=== PATIENT | female | born 1975 | race Caucasian/White ===

== ENCOUNTER → 2017-11-13 | Outpatient (REF) | payer OTHER ==
[2017-11-13 17:44] LABS: BASO # 0.1 10^3/uL (0.0-0.2); BASO % 0.5 % (0.0-1.0); EOS # 0.2 10^3/uL (0.0-0.50); EOS % 2.3 % (0.0-3.0); HEMATOCRIT 44.5 % (36.0-47.0); HEMOGLOBIN 14.9 g/dl (12.0-15.5); IMMATURE GRANULOCYTE % 0.3 % (0-3.0); LYMPH # 3.2 10^3/uL (1.5-4.5); LYMPH % 33.7 % (24.0-44.0); MEAN CORPUSCULAR HGB CONC 33.5 g/dl (32.0-36.5); MEAN CORPUSCULAR VOLUME 89.5 fl (80.0-96.0); MONO # 0.4 10^3/uL (0.0-0.8); MONO % 4.5 % (0.0-5.0); NEUTROPHILS # 5.5 10^3/uL (1.8-7.7); NEUTROPHILS % 58.7 % (36.0-66.0); PLATELET COUNT, AUTOMATED 294 10^3/uL (150-450); RED BLOOD COUNT 4.97 10^6/uL (4.00-5.40); RED CELL DISTRIBUTION WIDTH 14.2 % (11.5-14.5); WHITE BLOOD COUNT 9.4 10^3/uL (4.0-10.0)
[2017-11-13 18:09] LABS: TOTAL 25(OH) VITAMIN D 15.6 NG/ML (30.0-100.0)
[2017-11-13 18:20] LABS: ALBUMIN 3.4 GM/DL (3.2-5.2); ALKALINE PHOSPHATASE 87 U/L (45-117); ALT/SGPT 15 U/L (12-78); ANION GAP 8 MEQ/L (8-16); AST/SGOT 10 U/L (7-37); BILIRUBIN,TOTAL 0.4 MG/DL (0.2-1.0); BLOOD UREA NITROGEN 6 MG/DL (7-18); CALCIUM LEVEL 8.3 MG/DL (8.5-10.1); CARBON DIOXIDE LEVEL 23 MEQ/L (21-32); CHLORIDE LEVEL 110 MEQ/L (98-107); CHOLESTEROL LEVEL 175 MG/DL (<200); CHOLESTEROL RISK RATIO 4.268 (<5); CREATININE FOR GFR 0.73 MG/DL (0.55-1.30); FREE T4 1.11 NG/DL (0.76-1.46); GLOMERULAR FILTRATION RATE > 60.0 (>58); GLUCOSE, FASTING 78 MG/DL (70-100); HDL CHOLESTEROL 41 MG/DL (>40); LDL CHOLESTEROL 110.8 MG/DL (<100); NON-HDL-C 134 MG/DL; POTASSIUM SERUM 4.3 MEQ/L (3.5-5.1); SODIUM LEVEL 141 MEQ/L (136-145); TOTAL PROTEIN 6.8 GM/DL (6.4-8.2); TRIGLYCERIDES LEVEL 116 MG/DL (<150)
== END ==
LOC: M SFHCCAPE 07:03
DX: E66.9 Obesity, unspecified (principal)
CPT/HCPCS: 84443

== ENCOUNTER → 2018-01-09 | Outpatient (REF) | payer OTHER ==
[2018-01-09 16:59] LABS: ALBUMIN 3.1 GM/DL (3.2-5.2); ALBUMIN/GLOBULIN RATIO 0.94 (1.00-1.93); ALKALINE PHOSPHATASE 88 U/L (45-117); ALT/SGPT 16 U/L (12-78); ANION GAP 8 MEQ/L (8-16); AST/SGOT 12 U/L (7-37); BILIRUBIN,TOTAL 0.3 MG/DL (0.2-1.0); BLOOD UREA NITROGEN 9 MG/DL (7-18); CARBON DIOXIDE LEVEL 25 MEQ/L (21-32); CHLORIDE LEVEL 108 MEQ/L (98-107); CREATININE FOR GFR 0.78 MG/DL (0.55-1.30); FREE T4 1.07 NG/DL (0.76-1.46); GLOMERULAR FILTRATION RATE > 60.0 (>58); GLUCOSE, FASTING 80 MG/DL (70-100); POTASSIUM SERUM 4.1 MEQ/L (3.5-5.1); SODIUM LEVEL 141 MEQ/L (136-145); TOTAL 25(OH) VITAMIN D 47.8 NG/ML (30.0-100.0); TOTAL PROTEIN 6.4 GM/DL (6.4-8.2)
== END ==
LOC: M SFHCCAPE 06:59
DX: E55.9 Vitamin D deficiency, unspecified (principal); R79.89 Other specified abnormal findings of blood chemistry
CPT/HCPCS: 84443

== ENCOUNTER → 2018-01-15 | Outpatient (REF) | payer OTHER ==
[2018-01-15 19:12] LABS: CHLAMYDIA DNA AMPLIFICATION NEGATIVE (NEGATIVE); GC DNA AMPLIFICATION NEGATIVE (NEGATIVE)
[2018-01-17 15:46] LABS: HPV HYBRID CAPTURE II Negative (Negative)
== END ==
LOC: M SFHCCAPE 10:04
DX: Z01.419 Encounter for gynecological examination (general) (routine) without abnormal findings (principal); Z11.51 Encounter for screening for human papillomavirus (HPV)
CPT/HCPCS: 87591

== ENCOUNTER → 2018-05-21 | Outpatient (REF) | payer MEDICARE ==
[2018-05-21 19:12] LABS: IONIZED CALCIUM 4.5 MG/DL (4.5-5.3)
[2018-05-21 19:37] LABS: HCG, SERUM QUALITATIVE NEGATIVE (NEGATIVE)
[2018-05-21 19:57] LABS: ALBUMIN 3.5 GM/DL (3.2-5.2); ALT/SGPT 19 U/L (12-78); BILIRUBIN,TOTAL 0.3 MG/DL (0.2-1.0); BLOOD UREA NITROGEN 9 MG/DL (7-18); CALCIUM LEVEL 8.5 MG/DL (8.5-10.1); CARBON DIOXIDE LEVEL 25 MEQ/L (21-32); CHLORIDE LEVEL 108 MEQ/L (98-107); CHOLESTEROL LEVEL 201 MG/DL (<200); CHOLESTEROL RISK RATIO 4.466 (<5); CREATININE FOR GFR 0.74 MG/DL (0.55-1.30); ESTRADIOL 31.9 PG/ML; FOLLICLE STIMULATING HORMONE 66.6 mIU/mL; FREE T4 1.03 NG/DL (0.76-1.46); GLOMERULAR FILTRATION RATE > 60.0 (>58); GLUCOSE, FASTING 78 MG/DL (70-100); HDL CHOLESTEROL 45 MG/DL (>40); LDL CHOLESTEROL 135 MG/DL (<100); LUTEINIZING HORMONE 44.6 mIU/mL; MAGNESIUM LEVEL 2.2 MG/DL (1.8-2.4); NON-HDL-C 156 MG/DL; POTASSIUM SERUM 4.5 MEQ/L (3.5-5.1); PROLACTIN 8.6 NG/ML; SODIUM LEVEL 139 MEQ/L (136-145); TESTOSTERONE 37 NG/DL (14-76); TOTAL PROTEIN 6.8 GM/DL (6.4-8.2); TRIGLYCERIDES LEVEL 106 MG/DL (<150)
== END ==
LOC: M SFHCCAPE 10:19
PROVIDERS: ATTEND Physician Assistant
DX: E83.51 Hypocalcemia (principal); E03.9 Hypothyroidism, unspecified; N91.2 Amenorrhea, unspecified
CPT/HCPCS: 36415; 80053; 80061; 82330; 82670; 83001; 83002; 83735; 83970; 84100; 84146; 84403; 84439; 84443; 84703; G0463

== ENCOUNTER → 2020-06-15 | Outpatient (CLI) | payer MEDICARE ==
--- NOTE | 2020-06-15 14:29 | REP ---
INDICATION: LOOSE FRONT TOOTH; FACIAL INJURY; HIT FACE ON DOOR. COMPARISON: None. TECHNIQUE: Six views of the facial bones. FINDINGS: The osseous structures are intact. No foreign body. No fluid level within the sinuses to suggest occult injury. IMPRESSION: No evidence for acute fracture or dislocation. <Electronically signed by Avila Paris > 06/15/20 1420
== END ==
LOC: M CLY 08:48
PROVIDERS: ATTEND Physician Assistant
DX: S09.93XA Unspecified injury of face, initial encounter (principal); W22.8XXA Striking against or struck by other objects, initial encounter; Y92.002 Bathroom of unspecified non-institutional (private) residence as the place of occurrence of the external cause; Y99.9 Unspecified external cause status; R30.0 Dysuria
CPT/HCPCS: 70150; 81001; 87086; G0463

== ENCOUNTER → 2020-06-15 | Outpatient (REF) | payer MEDICARE ==
[2020-06-15 12:17] LABS: APPEARANCE, URINE CLOUDY (CLEAR); BACTERIA, URINE AUTO NEGATIVE (NEGATIVE); BILIRUBIN, URINE AUTO NEGATIVE (NEGATIVE); BLOOD, URINE BLOOD NEGATIVE (NEGATIVE); CALCIUM OXALATE CRYSTALS MODERATE; COLOR, URINE YELLOW (YELLOW); GLUCOSE, URINE (UA) AUTO NEGATIVE (NEGATIVE); KETONE, URINE AUTO NEGATIVE (NEGATIVE); LEUKOCYTE ESTERASE, URINE AUTO TRACE (NEGATIVE); MUCUS, URINE MODERATE (NEGATIVE); NITRITE, URINE AUTO NEGATIVE (NEGATIVE); PROTEIN, URINE AUTO NEGATIVE (NEGATIVE); RBC, URINE AUTO 0 /HPF (0-3); SQUAMOUS EPITHELIAL CELL UR AU 33 /HPF (0-6); UROBILINOGEN, URINE AUTO 0.2 mg/dL (0.0-2.0); WBC, URINE AUTO 8 /HPF (0-3)
== END ==
LOC: M SFHCCLAY 08:35
PROVIDERS: ATTEND Physician Assistant
DX: R30.0 Dysuria (principal)

== ENCOUNTER → 2020-07-07 | Outpatient (REF) | payer MEDICARE ==
[2020-07-07 16:33] LABS: BASO % 0.5 % (0.0-1.0); EOS # 0.2 10^3/uL (0.0-0.5); EOS % 2.6 % (0.0-3.0); HEMATOCRIT 42.7 % (36.0-47.0); HEMOGLOBIN 13.6 g/dl (12.0-15.5); LYMPH # 2.8 10^3/uL (1.5-5.0); LYMPH % 36.4 % (24.0-44.0); MEAN CORPUSCULAR HEMOGLOBIN 29.4 pg (27.0-33.0); MEAN CORPUSCULAR HGB CONC 31.9 g/dl (32.0-36.5); MEAN CORPUSCULAR VOLUME 92.4 fl (80.0-96.0); MONO # 0.3 10^3/uL (0.0-0.8); MONO % 4.4 % (2.0-8.0); NEUTROPHILS # 4.3 10^3/uL (1.5-8.5); PLATELET COUNT, AUTOMATED 284 10^3/uL (150-450); RED BLOOD COUNT 4.62 10^6/uL (4.00-5.40); WHITE BLOOD COUNT 7.7 10^3/uL (4.0-10.0)
[2020-07-07 17:13] LABS: ALBUMIN 3.6 GM/DL (3.2-5.2); ALT/SGPT 15 U/L (12-78); BILIRUBIN,TOTAL 0.1 MG/DL (0.2-1.0); BLOOD UREA NITROGEN 13 MG/DL (7-18); CALCIUM LEVEL 8.9 MG/DL (8.5-10.1); CARBON DIOXIDE LEVEL 25 MEQ/L (21-32); CHLORIDE LEVEL 117 MEQ/L (98-107); CHOLESTEROL LEVEL 191 MG/DL (<200); CHOLESTEROL RISK RATIO 3.537 (<5); CREATININE FOR GFR 0.68 MG/DL (0.55-1.30); FREE T4 0.87 NG/DL (0.76-1.46); GLOMERULAR FILTRATION RATE > 60.0 (>58); GLUCOSE, FASTING 89 MG/DL (70-100); HDL CHOLESTEROL 54 MG/DL (>40); LDL CHOLESTEROL 110 MG/DL (<100); NON-HDL-C 137 MG/DL; POTASSIUM SERUM 4.5 MEQ/L (3.5-5.1); SODIUM LEVEL 145 MEQ/L (136-145); TOTAL PROTEIN 6.3 GM/DL (6.4-8.2); TRIGLYCERIDES LEVEL 133 MG/DL (<150)
[2020-07-07 17:14] LABS: TOTAL 25(OH) VITAMIN D 9.8 NG/ML (30.0-100.0)
[2020-07-07 17:38] LABS: HEMOGLOBIN A1c 5.1 %
== END ==
LOC: M SFHCCAPE 08:01
PROVIDERS: ATTEND Physician Assistant
DX: E03.9 Hypothyroidism, unspecified (principal); E66.9 Obesity, unspecified; E55.9 Vitamin D deficiency, unspecified; Z79.899 Other long term (current) drug therapy

== ENCOUNTER → 2020-08-17 | Outpatient (REF) | payer MEDICARE | LOC: M LABDRWCV 15:58 | PROVIDERS: ATTEND Psychiatry & Neurology Neurology | DX: G40.219 Localization-related (focal) (partial) symptomatic epilepsy and epileptic syndromes with complex partial seizures, intractable, without status epilepticus (principal) ==

== ENCOUNTER → 2021-01-20 | Outpatient (REF) | payer MEDICARE | LOC: M SFHCCAPE 16:04 | PROVIDERS: ATTEND Physician Assistant | DX: Z01.419 Encounter for gynecological examination (general) (routine) without abnormal findings (principal) | CPT/HCPCS: 87624; G0123; G0463 ==

== ENCOUNTER → 2021-09-26 | Outpatient (CLI) | payer MEDICARE, MEDICAID ==
[2021-09-26 09:53] LABS: HEMATOCRIT 42.6 % (36.0-47.0); HEMOGLOBIN 13.7 g/dl (12.0-15.5); MEAN CORPUSCULAR HEMOGLOBIN 29.2 pg (27.0-33.0); MEAN CORPUSCULAR HGB CONC 32.2 g/dl (32.0-36.5); MEAN CORPUSCULAR VOLUME 90.8 fl (80.0-96.0); PLATELET COUNT, AUTOMATED 289 10^3/uL (150-450); RED BLOOD COUNT 4.69 10^6/uL (4.00-5.40); WHITE BLOOD COUNT 7.5 10^3/uL (4.0-10.0)
[2021-09-26 10:17] LABS: HEMOGLOBIN A1c 4.8 %
[2021-09-26 10:33] LABS: ALBUMIN 3.6 GM/DL (3.2-5.2); ALT/SGPT 19 U/L (12-78); BILIRUBIN,TOTAL 0.3 MG/DL (0.2-1.0); BLOOD UREA NITROGEN 9 MG/DL (7-18); CARBON DIOXIDE LEVEL 23 MEQ/L (21-32); CHLORIDE LEVEL 111 MEQ/L (98-107); CHOLESTEROL LEVEL 202 MG/DL (<200); CHOLESTEROL RISK RATIO 3.811 (<5); CREATININE FOR GFR 0.74 MG/DL (0.55-1.30); GLOMERULAR FILTRATION RATE > 60.0 (>58); GLUCOSE, FASTING 82 MG/DL (70-100); HDL CHOLESTEROL 53 MG/DL (>40); LDL CHOLESTEROL 122 MG/DL (<100); NON-HDL-C 149 MG/DL; SODIUM LEVEL 141 MEQ/L (136-145); THYROXINE (T4) 9.4 UG/DL (4.5-12.0); TOTAL PROTEIN 6.8 GM/DL (6.4-8.2); TRIGLYCERIDES LEVEL 134 MG/DL (<150)
[2021-09-26 10:39] LABS: LUTEINIZING HORMONE 56.1 mIU/mL; TOTAL 25(OH) VITAMIN D 28.2 NG/ML (30.0-100.0); TOTAL T3 93.5 NG/DL (60.0-181.0)
[2021-09-26 10:40] LABS: ESTRADIOL < 19.0 PG/ML; FOLLICLE STIMULATING HORMONE 118.5 mIU/mL
== END ==
LOC: M RAD 08:48
PROVIDERS: ATTEND Family Medicine
DX: I10 Essential (primary) hypertension (principal)

== ENCOUNTER 2023-11-23 09:34 | Day surgery (SDC) | payer MEDICARE, MEDICAID ==
[~2023-11-23] VITALS: Ht 170.2 cm; Wt 114.7 kg
[~2023-11-23 09:34] MED LIST: ALBU8.5H INH; D200CAP3 PO; FLUO40CA PO; LAMO100T3 PO; OMEP-173 PO; SIMV20TA22 PO; ZONI100C67 PO
[2023-11-23] MEDS ORDERED: LR 1,000 ML IV SCH ×2 (10:05→12:25)
[2023-11-23] MEDS ORDERED: LIDOCAINE 2% 100MG/5ML SDV (FOR ANES.) As Ordered ONE (10:34)
[2023-11-23] MEDS ORDERED: fentaNYL 100 MCG/2 ML INJECTION As Ordered ONE (10:34)
[2023-11-23] MEDS ORDERED: MIDAZOLAM INJ 2MG/2ML VIAL As Ordered ONE (10:34)
[2023-11-23] MEDS ORDERED: ONDANSETRON 4MG 2ML VIAL As Ordered ONE (10:34)
[2023-11-23] MEDS ORDERED: ROCURONIUM BROMIDE 50MG/5ML VIAL As Ordered ONE (10:34)
[2023-11-23] MEDS ORDERED: KETOROLAC 60MG 2ML VIAL As Ordered ONE (10:34)
[2023-11-23] MEDS ORDERED: propofoL 200 MG/20 ML VIAL As Ordered ONE (10:34)
[2023-11-23] MEDS ORDERED: ACETAMINOPHEN 1000MG 100ML IV BAG As Ordered ONE (10:35)
[2023-11-23] MEDS ORDERED: SUGAMMADEX SODIUM 500 MG/5 ML VIAL (BRIDION) As Ordered ONE (11:46)
[2023-11-23] MEDS: LIDOCAINE W/EPINEPHRINE 1% 20ML VIAL As Ordered ONE (11:55)
[2023-11-23] MEDS ORDERED: MEPERIDINE 25 MG/ML 1ML VIAL IV PRN (12:25)
[2023-11-23] MEDS ORDERED: ONDANSETRON 4MG 2ML VIAL IV PRN (12:25)
[2023-11-23] MEDS ORDERED: diphenhydrAMINE 50MG/ML VIAL IV PRN (12:25)
[2023-11-23] MEDS ORDERED: fentaNYL 100 MCG/2 ML INJECTION IV PRN (12:25)
[2023-11-23] MEDS ORDERED: oxyCODONE 5MG TAB PO PRN (12:25)
[2023-11-23] MEDS ORDERED: ALBUTEROL SULFATE 2.5MG/0.5ML INH NEB SOLN INH PRN (12:25)
[2023-11-23] MEDS ORDERED: METOCLOPRAMIDE INJ 10MG/2ML VIAL IV PRN (12:25)
[2023-11-23 13:06] VITALS: BP 130/78; TEMP 97.7; O2SAT 97
== END 2023-11-23 13:08 | disposition home or self-care (01) ==
LOC: M SDC 09:34
PROVIDERS: ATTEND Dentist Oral and Maxillofacial Surgery
DX: K02.9 Dental caries, unspecified (principal); R06.83 Snoring; G47.9 Sleep disorder, unspecified; Z79.899 Other long term (current) drug therapy; F17.210 Nicotine dependence, cigarettes, uncomplicated; Z91.018 Allergy to other foods
CPT/HCPCS: 41899; 81025; 88300; J0131; J1100; J1885; J2250; J2405; J3010